=== PATIENT | male | born 1995 | race Caucasian/White ===

== ENCOUNTER 2019-05-23 05:09 | Emergency (ER) | payer BC ==
[~2019-05-23] VITALS: Ht 190.5 cm; Wt 75.9 kg
[~2019-05-23 05:09] MED LIST: AZIT500T3 PO; CPRHC10OT RIGHT EAR; OFLO5DRO7 RIGHT EAR
[2019-05-23 05:13] VITALS: BP 128/85; PULSE 67; RESP 16; Ht 190.5 cm; Wt 75.9 kg
[2019-05-23] MEDS ORDERED: HYDROCODONE/APAP (10/325) TAB PO ONE (06:00)
== END 2019-05-23 06:57 | disposition home or self-care (01) ==
LOC: FTE 05:09
DX: H66.91 Otitis media, unspecified, right ear (principal); J45.909 Unspecified asthma, uncomplicated
CPT/HCPCS: 70450

== ENCOUNTER 2019-05-23 16:38 | Emergency (ER) | payer BC ==
[~2019-05-23] VITALS: Ht 188 cm; Wt 74.4 kg
[2019-05-23 16:42] VITALS: BP 136/84; PULSE 81; RESP 16; Ht 188 cm; Wt 74.4 kg
== END 2019-05-23 17:29 | disposition home or self-care (01) ==
LOC: FTE 16:38
DX: H60.501 Unspecified acute noninfective otitis externa, right ear (principal); J45.909 Unspecified asthma, uncomplicated; F17.210 Nicotine dependence, cigarettes, uncomplicated
CPT/HCPCS: 99283